=== PATIENT | male | born 1985 | race African-American/Black ===

== ENCOUNTER 2017-09-29 23:47 | Emergency (ER) | payer OTHER ==
[~2017-09-29] VITALS: Ht 172.7 cm; Wt 158.8 kg
[2017-09-30 03:20] VITALS: BP 141/89
== END 2017-09-30 03:12 | disposition home or self-care (01) ==
LOC: ER 23:50
DX: S80.01XA Contusion of right knee, initial encounter (principal); M62.838 Other muscle spasm; V49.69XA Unspecified car occupant injured in collision with other motor vehicles in traffic accident, initial encounter; Y93.89 Activity, other specified; Y99.8 Other external cause status; Y92.89 Other specified places as the place of occurrence of the external cause
CPT/HCPCS: 73560

== ENCOUNTER 2017-12-17 18:58 | Emergency (ER) | payer OTHER ==
[~2017-12-17] VITALS: Ht 172.7 cm; Wt 163.3 kg
[2017-12-17] MEDS ORDERED: HYDROcodone-ACET 10/325MG TAB PO ONE (21:30)
[2017-12-17 21:34] VITALS: BP 143/87
== END 2017-12-17 21:38 | disposition home or self-care (01) ==
LOC: ER 18:58
DX: S93.402A Sprain of unspecified ligament of left ankle, initial encounter (principal); M77.32 Calcaneal spur, left foot; W01.0XXA Fall on same level from slipping, tripping and stumbling without subsequent striking against object, initial encounter; Y93.89 Activity, other specified; Y99.8 Other external cause status; Y92.89 Other specified places as the place of occurrence of the external cause
CPT/HCPCS: 73610

== ENCOUNTER 2018-06-03 17:58 | Emergency (ER) | payer SELFPAY ==
[~2018-06-03] VITALS: Ht 175.3 cm; Wt 155.1 kg
[2018-06-03 19:20] LABS: Basophils # (auto) 0 uL; Basophils % (auto) 0.3 % (0.0-2.0); Eosinophils # (auto) 0.1 uL; Eosinophils % (auto) 1.9 % (0.0-7.0); Hematocrit 43.6 % (41.0-53.0); Hemoglobin 14.2 g/dL (13.5-17.5); Lymphocytes # (auto) 1.9 uL; Lymphocytes % (auto) 27.3 % (10.0-50.0); Mean Corpuscular Hemoglobin 27.9 pg (28.0-32.0); Mean Corpuscular Hgb Conc. 32.5 g/dL (32.0-36.0); Mean Corpuscular Volume 85.7 fL (80.0-100.0); Monocytes # (auto) 0.8 uL; Monocytes % (auto) 12.3 % (0.0-12.0); Neutrophils % (auto) 58.2 % (37.0-80.0); Nucleated Red Blood Cells % 0.1 %; Platelet Count (auto) 179 10^3/uL (140-450); Red Blood Cells 5.09 10^6/uL (4.5-5.90); Red Cell Distribution Width 15.7 % (11.8-14.3); White Blood Cell 6.9 10^3/uL (4.4-10.8)
[2018-06-03 19:33] LABS: Albumin 3.5 g/dL (3.4-5.0); Uric Acid 10.6 mg/dL (3.5-7.2)
[2018-06-03 19:35] LABS: Potassium 3.8 mmol/L (3.5-5.1)
[2018-06-03 19:36] LABS: Bilirubin, Total 0.6 mg/dL (0.2-1.0); Total Protein 8.3 g/dL (6.4-8.2)
[2018-06-03 21:06] LABS: BUN/Creatinine Ratio 15.1
[2018-06-03] MEDS ORDERED: DexAMETHasone SOD PHOS 10MG/1ML VIAL INJ IM ONE (21:45)
[2018-06-03] MEDS ORDERED: MEPERIDINE HCL (50 MG/ML) 1 ML VIAL IM ONE (21:45)
[2018-06-03] MEDS ORDERED: ONDANSETRON ODT 4 MG TAB PO ONE (21:45)
[2018-06-03 21:50] VITALS: BP 133/79
== END 2018-06-03 22:50 | disposition home or self-care (01) ==
LOC: ER 17:58
DX: M10.072 Idiopathic gout, left ankle and foot (principal)
CPT/HCPCS: 36415; 73700; 80053; 84550; 85025; 96372; 99284; J1100; J2175; Q0162